=== PATIENT | female | born 1935 | race Caucasian/White ===

== ENCOUNTER 2019-05-18 06:05 | Emergency (ER) | payer OTHER ==
[~2019-05-18] VITALS: Ht 180.3 cm; Wt 108.9 kg
[~2019-05-18 06:05] MED LIST: AMLO5TAB9 PO; CHOL20004 PO; IBUP-1958 PO; INSU100V7 SQ; LEVO200T9 PO; LOSA50TA3 PO; METO-356 PO; NATE120T PO; OMEP20CA11 PO
--- NOTE | 2019-05-18 06:15 | NUR ---
came to ER via car from home by son . patient AAOX4/MAEX4 ,wears a lumbar brace s/p back surgery last june of 2018,as per patient at around 0215 had a paroxyximal cough that didnt stop and after coughing for so long she had chest pain and she called her son and son brought her here in the hospital .patient verbalized no chest pain now but her right and left lung is tight from coughing .
[2019-05-18] MEDS ORDERED: BACL5TAB PO (06:44)
[2019-05-18] MEDS ORDERED: ACET1TAB17 PO (06:44)
[2019-05-18] MEDS ORDERED: ACET-73 PO (06:44)
[2019-05-18] MEDS ORDERED: AMOX500C2 PO (06:44)
[2019-05-18] MEDS ORDERED: MULT1TAB73 PO (06:44)
[2019-05-18] MEDS ORDERED: ASPI81TA31 PO (06:44)
[2019-05-18] MEDS ORDERED: CHLO4TAB PO (06:44)
[2019-05-18] MEDS ORDERED: CHOL100043 PO (06:44)
[2019-05-18] MEDS ORDERED: ASPIRIN 325 MG TABLET PO ONE (06:45)
[2019-05-18] MEDS ORDERED: IV NORMAL SALINE 500 ML BAG IV ONE (06:45)
[2019-05-18] MEDS ORDERED: NITROGLYCERIN 0.4 MG/TAB BOTTLE SL ONE ×2 (06:45→07:01)
[2019-05-18] MEDS ORDERED: BENZONATATE 100 MG CAPSULE PO ONE (07:00)
[2019-05-18] MEDS ORDERED: ALBUTEROL SULFATE 2.5 MG/3 ML NEBU NEB ONE (07:00)
[2019-05-18] MEDS ORDERED: ALBUTEROL SULFATE 2.5 MG/3 ML NEBU ONE (07:01)
[2019-05-18] MEDS ORDERED: ASPIRIN 325 MG TABLET ONE (07:01)
--- NOTE | 2019-05-18 07:15 | NUR ---
Bedside report received from Adarsh Lay. will continue with care plan.
[2019-05-18] MEDS ORDERED: BENZONATATE 100 MG CAPSULE ONE (07:20)
[2019-05-18 07:21] LABS: BASOPHILS # (AUTO) 0.1 K/uL (0.0-8.0); BASOPHILS % (AUTO) 1.1 % (0.0-2.0); EOSINOPHILS # (AUTO) 0.1 K/uL (0.0-0.7); EOSINOPHILS % (AUTO) 2.2 % (0.0-7.0); HEMATOCRIT 36.4 % (31.2-41.9); HEMOGLOBIN 12.3 g/dL (10.9-14.3); LYMPHOCYTES # (AUTO) 1.6 K/uL (20.0-40.0); LYMPHOCYTES % (AUTO) 22.7 % (20.5-51.5); MEAN CORPUSCULAR HEMOGLOBIN 30.5 uug (24.7-32.8); MEAN CORPUSCULAR HGB CONC 34 g/dL (32.3-35.6); MEAN CORPUSCULAR VOLUME 90.3 fL (75.5-95.3); MONOCYTES # (AUTO) 0.8 K/uL (2.0-10.0); MONOCYTES % (AUTO) 11.9 % (0.0-11.0); NEUTROPHILS # (AUTO) 4.3 K/uL (1.8-8.9); NEUTROPHILS % (AUTO) 62.1 % (38.5-71.5); PLATELET COUNT (AUTO) 189 K/uL (179-408); RED BLOOD CELL COUNT(AUTO) 4.04 MIL/uL (3.63-4.92); WHITE BLOOD COUNT (AUTO) 6.9 K/uL (3.8-11.8)
[2019-05-18 07:30] LABS: CARBON DIOXIDE 28 mmol/L (21-32); CHLORIDE 107 mmol/L (98-107); CREATININE 0.6 mg/dL (0.6-1.3); GLUCOSE 71 mg/dL (74-106); POTASSIUM 3.7 mmol/L (3.5-5.1); UREA NITROGEN, BLOOD 12 mg/dL (7-18)
--- NOTE | 2019-05-18 07:33 | NUR ---
ENDORSED PATIENT TO RN RICCI . USING SBAR .
[2019-05-18 07:43] LABS: ALANINE AMINOTRANSFERASE 20 U/L (14-59); ALKALINE PHOSPHATASE 95 U/L (50-136); ASPARTATE AMINOTRANSFERASE 16 U/L (15-37); BILIRUBIN,DIRECT 0.2 mg/dL (0.0-0.2); BILIRUBIN,TOTAL 0.8 mg/dL (0.2-1.0); TOTAL PROTEIN, SERUM 6.9 g/dL (6.4-8.2)
--- NOTE | 2019-05-18 08:42 | NUR ---
Dr. altamirano bedside to discuss dcd plan with patient who's currently eating breakfast.
--- NOTE | 2019-05-18 08:52 | NUR ---
a call to Pt's son Allen and unable to leave message to informed his mother will be dcd. inbox message full.
[2019-05-18 09:03] VITALS: BP 156/86
--- NOTE | 2019-05-18 09:05 | NUR ---
dcd instructions and prescription given to pt. who verbalized understanding. Patient herself attempting to contact son to pick her up awaiting call back.
--- NOTE | 2019-05-18 09:30 | NUR ---
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 vitals stable hr 83, 155/73. saturation of 96% on RA
== END 2019-05-18 09:29 | disposition home or self-care (01) ==
LOC: ER 06:09
DX: J20.9 Acute bronchitis, unspecified (principal); E11.9 Type 2 diabetes mellitus without complications; Z88.1 Allergy status to other antibiotic agents; Z88.2 Allergy status to sulfonamides; Z88.0 Allergy status to penicillin; Z88.8 Allergy status to other drugs, medicaments and biological substances; Z79.82 Long term (current) use of aspirin; Z79.1 Long term (current) use of non-steroidal anti-inflammatories (NSAID); Z79.4 Long term (current) use of insulin; Z79.899 Other long term (current) drug therapy
CPT/HCPCS: 36415; 70030-TC; 71045; 85025; 85730; 93005; A4663; J7030